=== PATIENT | female | born 1945 | race African-American/Black ===

== ENCOUNTER 2018-10-10 14:22 | Inpatient (IN) | payer MEDICARE, MEDICAID ==
[~2018-10-10] VITALS: Ht 165.1 cm; Wt 73.5 kg
[~2018-10-10 14:22] MED LIST: FURO-151 PO; LEVO175T7 PO; LOSA100T14 PO; METO-539 PO; NIRA100C PO; OMEP20CA4 PO; POTA10CA42 PO
[2018-10-10] MEDS ORDERED: ALBUTEROL (0.083%) 2.5MG/3ML NEB HHN STA (14:40)
[2018-10-10 15:50] LABS: BG BASE EXCESS -8.9 mmol/L (-2.0-2.0); BG CARBOXYHEMOGLOBIN 1.8 % (0.5-1.5); BG DEOXYHEMOGLOBIN 1.6 % (0.0-5.0); BG FRACTION INSPIRED OXYGEN 32; BG METHEMOGLOBIN 0.6 % (0.0-1.5); BG OXYGEN SATURATION 98.4 % (92.0-98.5); BG PCO2 20.8 mmHg (35.0-45.0); BG PH 7.414 (7.350-7.450); BG PO2 134.5 mmHg (75.0-100.0); BG SAMPLE SITE RIGHT BRACHIAL; BG TOTAL HEMOGLOBIN 15.3 g/dL (12.0-18.0); BG VENT MODE NASAL CANNULA
[2018-10-10] MEDS ORDERED: FENTANYL CITRATE/PF 50MCG/ML 2ML VIAL IV ONE (16:15)
[2018-10-10] MEDS ORDERED: SODIUM CHLORIDE 0.9% 1,000 ML IV ONE ×2 (16:15→21:15)
[2018-10-10 18:27] LABS: HEMATOCRIT. 45.1 % (36.0-48.0); HEMOGLOBIN. 14.6 g/dL (12.0-16.0); MEAN CORPUSCULAR HEMOGLOBIN 24.7 pg (28.0-32.0); MEAN CORPUSCULAR VOLUME 76.2 fL (81.0-99.0); MEAN PLATELET VOLUME 8.5 fl (7.4-10.4); PLATELET 611 x1000/uL (130-400); RED BLOOD CELL COUNT 5.92 mill/uL (4.2-5.4)
[2018-10-10 18:34] LABS: CHLORIDE 95 mEq/L (98-107)
[2018-10-10] MEDS ORDERED: ENOXAPARIN 80MG/0.8ML SYR SUBCUT ONE (20:00)
[2018-10-10 20:07] LABS: PLATELET ESTIMATE INCREASED
[2018-10-10] MEDS ORDERED: CLONIDINE 0.1MG TABLET PO PRN (20:15)
[2018-10-10] MEDS ORDERED: AZITHROMYCIN 500 MG in DEXT 5% WATER 250 ML IV SCH ×2 (22:00→22:15)
[2018-10-10 22:01] VITALS: BP 121/64
[2018-10-10 22:07] VITALS: BP 121/64
[2018-10-10] MEDS ORDERED: ZOLPIDEM TARTRATE 5MG TABLET PO PRN (23:15)
[2018-10-10] MEDS: METOPROLOL TARTRATE 50MG TABLET PO SCH (23:27)
[2018-10-10] MEDS: ONDANSETRON HCL 4MG/2ML INJ IV PRN (23:37)
[2018-10-11] VITALS (8 sets, daily range): BP systolic 103–135; BP diastolic 52–90
[2018-10-11] MEDS: IPRATROPIUM/ALBUTEROL 0.5-3(2.5)MG/3ML NEB INH SCH ×4 (02:23→20:50)
[2018-10-11] MEDS ORDERED: PANTOPRAZOLE 40MG DR TABLET PO SCH (07:40)
[2018-10-11] MEDS ORDERED: LEVOTHYROXINE SODIUM 175MCG TABLET PO SCH (07:40)
[2018-10-11] MEDS: METOPROLOL TARTRATE 50MG TABLET PO SCH ×2 (08:21→20:28)
[2018-10-11] MEDS ORDERED: LOSARTAN POTASSIUM 50 MG TABLET PO SCH (09:00)
[2018-10-11] MEDS ORDERED: FUROSEMIDE 40MG/4ML VIAL IV SCH (09:00)
[2018-10-11] MEDS ORDERED: POTASSIUM CHLORIDE 20MEQ TABLET SR PO SCH (09:00)
[2018-10-11 09:15] LABS: HEMATOCRIT. 41.7 % (36.0-48.0); MEAN CORPUSCULAR HEMOGLOBIN 25.2 pg (28.0-32.0); MEAN CORPUSCULAR VOLUME 75.2 fL (81.0-99.0); MEAN PLATELET VOLUME 8.5 fl (7.4-10.4); PLATELET 560 x1000/uL (130-400); RED BLOOD CELL COUNT 5.55 mill/uL (4.2-5.4); RED CELL DISTRIBUTION WIDTH 19.6 % (11.6-14.6)
[2018-10-11 09:27] LABS: CHLORIDE 96 mEq/L (98-107)
[2018-10-11 09:33] LABS: LDL CHOLESTEROL 39 mg/dL (5-100)
[2018-10-11 09:35] LABS: HDL CHOLESTEROL 24 mg/dL (40-59)
[2018-10-11] MEDS ORDERED: ACETAMINOPHEN 500MG TABLET PO PRN (11:15)
[2018-10-11] MEDS ORDERED: ACETAMINOPHEN 325MG TABLET PO PRN (11:15)
[2018-10-11 11:20] LABS: BG BASE EXCESS -5.7 mmol/L (-2.0-2.0); BG CARBOXYHEMOGLOBIN 0.9 % (0.5-1.5); BG DEOXYHEMOGLOBIN 1.4 % (0.0-5.0); BG FRACTION INSPIRED OXYGEN 30; BG HCO3 ACT 16.6 mmol/L (22.0-26.0); BG METHEMOGLOBIN 0.6 % (0.0-1.5); BG OXYGEN SATURATION 98.6 % (92.0-98.5); BG OXYHEMOGLOBIN 97.1 % (94.0-97.0); BG PCO2 25.3 mmHg (35.0-45.0); BG PH 7.436 (7.350-7.450); BG PO2 136.5 mmHg (75.0-100.0); BG SAMPLE SITE RIGHT BRACHIAL; BG TOTAL HEMOGLOBIN 14.5 g/dL (12.0-18.0); BG VENT MODE NASAL CANNULA
[2018-10-11 11:48] LABS: PLATELET ESTIMATE INCREASED
[2018-10-11] MEDS ORDERED: ASPIRIN 81MG TABLET PO SCH (12:00)
[2018-10-11 13:51] LABS: INR 1.3; PARTIAL THROMBOPLASTIN TIME 31.9 sec (23.4-31.0); PROTHROMBIN TIME 12.6 sec (9.1-11.1)
[2018-10-11] MEDS ORDERED: MORPHINE SULFATE 2 MG/ML CPJ (NOT FOR IM USE) IV PRN (15:45)
[2018-10-11 15:55] LABS: CLARITY URINE CLOUDY (CLEAR); COLOR URINE DARK YELLOW (YELLOW); KETONES URINE NEGATIVE (NEGATIVE); LEUKOCYTE ESTERASE URINE NEGATIVE (NEGATIVE); NITRITE URINE NEGATIVE (NEGATIVE); OCCULT BLOOD URINE NEGATIVE (NEGATIVE); PROTEIN URINE NEGATIVE (NEGATIVE); SPECIFIC GRAVITY URINE 1.019 (1.005-1.030)
[2018-10-11] MEDS: ONDANSETRON HCL 4MG/2ML INJ IV PRN ×2 (17:58→23:27)
[2018-10-11] MEDS ORDERED: ALPR0.5T PO (18:19)
[2018-10-11] MEDS: HYDROMORPHONE HCL/PF 2MG/ML CPJ IV PRN ×2 (18:56→23:20)
[2018-10-11] MEDS ORDERED: AZITHROMYCIN 500 MG in DEXT 5% WATER 250 ML IV SCH (22:00)
[2018-10-11] MEDS ORDERED: ENOXAPARIN 30MG/0.3ML SYR SUBCUT SCH (22:00)
[2018-10-12] MEDS ORDERED: SODIUM BICARBONATE 7.5% 0.9 MEQ/ML 50ML SYR IV ONE (15:06)
[2018-10-12] MEDS ORDERED: AMIODARONE HCL 50MG/ML 3ML VIAL IV ONE (15:06)
[2018-10-12] MEDS ORDERED: EPINEPHRINE 0.1MG/ML (1:10,000) 10ML SYR ONE (15:06)
== END 2018-10-12 04:20 | disposition expired | DRG 469 ==
LOC: ER 15:12 → 7WST 19:59 → EDBEDREQ 20:02 → ENRESERV 20:44
PROVIDERS: ADMIT Internal Medicine Geriatric Medicine; ATTEND Internal Medicine Geriatric Medicine
PROC: 5A1935Z Respiratory Ventilation, Less than 24 Consecutive Hours (ICD-10-PCS; principal; 2018-10-12)
PROC: 0BH18EZ Insertion of Endotracheal Airway into Trachea, Via Natural or Artificial Opening Endoscopic (ICD-10-PCS; 2018-10-12)
PROC: 5A12012 Performance of Cardiac Output, Single, Manual (ICD-10-PCS; 2018-10-12)
PROC: 06HN33Z Insertion of Infusion Device into Left Femoral Vein, Percutaneous Approach (ICD-10-PCS; 2018-10-12)
PROC: B54CZZA Ultrasonography of Left Lower Extremity Veins, Guidance (ICD-10-PCS; 2018-10-12)
DX: N17.0 Acute kidney failure with tubular necrosis (principal); E43 Unspecified severe protein-calorie malnutrition; E87.4 Mixed disorder of acid-base balance; I47.2 Ventricular tachycardia; E87.5 Hyperkalemia; R18.8 Other ascites; I11.0 Hypertensive heart disease with heart failure; I50.9 Heart failure, unspecified; E87.1 Hypo-osmolality and hyponatremia; C56.9 Malignant neoplasm of unspecified ovary; E11.9 Type 2 diabetes mellitus without complications; I46.9 Cardiac arrest, cause unspecified; R06.03 Acute respiratory distress; I25.5 Ischemic cardiomyopathy; I25.10 Atherosclerotic heart disease of native coronary artery without angina pectoris; E03.9 Hypothyroidism, unspecified; E78.5 Hyperlipidemia, unspecified; F17.200 Nicotine dependence, unspecified, uncomplicated; Z83.3 Family history of diabetes mellitus; Z85.43 Personal history of malignant neoplasm of ovary; Z95.1 Presence of aortocoronary bypass graft; Z95.810 Presence of automatic (implantable) cardiac defibrillator; Z68.27 Body mass index [BMI] 27.0-27.9, adult; Z88.0 Allergy status to penicillin; Z88.1 Allergy status to other antibiotic agents; Z88.8 Allergy status to other drugs, medicaments and biological substances
CPT/HCPCS: 36415; 36600; 71045; 76770; 78582; 80061; 82375; 82805; 82962; 83880; 84443; 84484; 93005; 93306; 93970; 94640; 96361; 96372; 96374; 99291; A9558; C1893; J0282; J0456; J1170; J1650; J1940; J2405; J3010; J3490; J7030; J7050; J7060; J7611; J7620